=== PATIENT | female | born 1990 | race African-American/Black ===

== ENCOUNTER 2017-02-17 09:41 | Emergency (ER) | payer MEDICAID ==
[~2017-02-17 09:41] MED LIST: AMOXICILLIN500 M2 PO; BACTRIM DS TAB1 EAC2 PO; FLONASE ALLERG9.9 ML; HYDROCODON-ACE1 EA16 PO; IBUPROFEN200 M3 PO; IBUPROFEN600 M1 PO; IBUPROFEN800 M1 PO; IBUPROFEN800 MG PO; MACROBID 100 M100 M1 PO; NORCO 5-325 TA1 EACH PO; PERCOCET 5-3251 EACH PO; PERCOCET 5MG/AP1 TA3 PO; PRENA1 CHEW TA1.4 M1 PO; PRENATA CHEWAB1 EAC1
[2017-02-17] MEDS ORDERED: PROMETHAZINE HC25 M3 PO (10:05)
== END 2017-02-17 10:23 ==
LOC: EDMED 09:41
DX: B34.9 Viral infection, unspecified (principal); R05 Cough; Z98.890 Other specified postprocedural states

== ENCOUNTER 2017-04-07 13:51 | Emergency (ER) | payer MEDICAID ==
[~2017-04-07 13:51] MED LIST changes: +PROMETHAZINE HC25 M3 PO
[2017-04-07] MEDS ORDERED: NO HOME MEDICATION XX (14:15)
[2017-04-07] MEDS ORDERED: DICLOFENAC SODI50 M1 PO (15:07)
== END 2017-04-07 15:22 ==
LOC: EDMED 13:51
DX: S80.852A Superficial foreign body, left lower leg, initial encounter (principal); W45.8XXA Other foreign body or object entering through skin, initial encounter; Y92.019 Unspecified place in single-family (private) house as the place of occurrence of the external cause